=== PATIENT | female | born 1980 | race Caucasian/White ===

== ENCOUNTER 2022-07-25 13:16 | Emergency (ER) | payer SELFPAY ==
[2022-07-25 13:20] VITALS: BP 129/84; PULSE 94; RESP 18; TEMP 36.8; O2SAT 96; BMI 29.0
--- NOTE | 2022-07-25 13:37 | ED_ITS ---
HPI - Animal Bite General: Chief Complaint: Animal Bite Stated Complaint: Bit by a snake, Left leg Time Seen by Provider: 07/25/22 13:26 History of Present Illness: Ms. Hernadez is a 42-year-old lady without significant past medical history presents to the emergency department due to c oncern over syncope. She reports feeling her baseline health past few days and without clearing brush when she felt a sudden pain in her left lower leg. She did not see the snake however has had burning pain with mildly expanding erythema since then. Denies other signs systemic illness. Intensity symptoms is moderate. Course has persisted. Worse with palpation and movement. No other specific changes in health, exacerbating, or alleviating factors identified. Onset (ago): minute(s) Animal: snake Description of animal: wild animal Mechanism: bite Pain description: burning Associated symptoms: Reports no associated symptoms Review of Systems General: Reports: 10 or more systems reviewed and unremarkable except in HPI and below PFSH ED PFSH: Medical History (Updated 08/02/22 @ 20:19 by Huy Gonzales MD) No significant past medical history Surgical History (Updated 08/02/22 @ 20:19 by Huy Gonzales MD) No significant past surgical history Physical Exam Const: COMMON NORMALS: alert GENERAL APPEARANCE: cooperative and well developed HENMT: COMMON NORMALS: normocephalic and atraumatic HEAD & SCALP: normocephalic and atraumatic Eye: COMMON NORMALS: conjunctivae normal CONJUNCTIVA: Yes conjunctivae normal SCLERA: sclerae normal Neck/C-Spine: COMMON NORMALS: supple GENERAL: Yes trachea midline Resp: COMMON NORMALS: clear to auscultation bilaterally EFFORT & INSPECTION: Yes able to speak in complete sentences AUSCULTATION: clear to auscultation bilaterally Cardio: COMMON NORMALS: regular rate and regular rhythm RATE: regular rate RHYTHM: regular rhythm GI: COMMON NORMALS: Soft to palpation PALPATION: Yes Soft to palpation and No Tenderness to palpation present (GI) Extremity: GENERAL: Yes normal exam except as noted and No edema Neuro: COMMON NORMALS: moves all extremities SENSORIUM/ORIENTATION: Yes alert and No Orientation impaired Psych: COMMON NORMALS: mental status grossly normal and Normal thought process present THOUGHT PROCESS: Normal thought process present Skin: NARRATIVE SKIN EXAM: Area of erythema and localized edema with margins marked. 2 questionable superficial fang davila without significant puncture. Tender to palpation. Course Vital Signs: Vital signs: Vital Signs Temperature 98.3 F 07/25/22 13:20 Pulse Rate 85 07/25/22 15:37 Respiratory Rate 16 07/25/22 15:37 Blood Pressure 109/80 07/25/22 15:37 Pulse Oximetry 91 07/25/22 15:37 Oxygen Delivery Me thod 07/25/22 13:20 MDM - Animal Bite Medical Decision Making 42-year-old lady presenting with concern of a snakebite. Snake was not d efinitively observed/identified for the patient classification/identification. Localized symptoms without general symptoms. Patient is nontoxic in appearance. Symptom treatment ordered Mild leukocytosis on hematologic panel. Metabolic panel without significant abnormality. D-dimer mildly elevated without other significant coagulation abnormality. Negative x-ray. Upon serial reassessment of patient condition only minimal progression of edema and erythema has improved. Pain improved. There is no evidence of crossing major joint lines. Most likely etiology of patient's symptoms is partial envenomation versus other localized reaction to snakebite. The results of ED evaluation were discussed with the patient including prescriptions and/or symptomatic cares (if applicable) including appropriate and responsible use, followup plan, and strict return precautions. The patient verbalized understanding and felt safe for discharge. Medical Records I reviewed the patient's medical records. Lab Data I reviewed the patient's lab results. : 07/25/22 13:55 07/25/22 13:55 Radiology Impressions Tibia/Fibula X-Ray 07/25/22 13:44 IMPRESSION: Negative left tibia and fibula. Laboratory Results WBC 12.3 10^3/uL (4.0-10.0) H 07/25/22 13:55 RBC 4.64 10^6/uL (4.1-5.3) 07/25/22 13:55 Hgb 14.5 g/dL (11.5-15.3) 07/25/22 13:55 Hct 43.9 % (37.0-47.0) 07/25/22 13:55 MCV 94.6 fl (81-99) 07/25/22 13:55 MCH 31.3 pg (28.0-34.0) 07/25/22 13:55 MCHC 33.0 g/dL (30.0-36.0) 07/25/22 13:55 RDW 12.1 % (12.1-15.1) 07/25/22 13:55 Plt Count 266 10^3/cmm (130-400) 07/25/22 13:55 MPV 10.8 fL (7.4-10.4) H 07/25/22 13:55 Neut % (Auto) 53.6 % 07/25/22 13:55 Lymph % (Auto) 36.8 % 07/25/22 13:55 [place] % (Auto) 4.7 % 07/25/22 13:55 Eos % (Auto) 4.0 % 07/25/22 13:55 Baso % (Auto) 0.5 % 07/25/22 13:55 Neut # (Auto) 6.62 10^3/uL (1.8-7.7) 07/25/22 13:55 Lymph # (Auto) 4.5 10^3/uL (0.8-4.8) 07/25/22 13:55 [place] # (Auto) 0.6 10^3/uL (0.2-0.9) 07/25/22 13:55 Eos # (Auto) 0.5 10^3/uL (0.0-0.8) 07/25/22 13:55 Baso # (Auto) 0.1 10^3/uL (0.0-0.1) 07/25/22 13:55 Nucleated RBC % (auto) 0 % 07/25/22 13:55 Nucleated RBCs # 0.0 /100WBC 07/25/22 13:55 PT 12.60 SECONDS (12.1-14.9) 07/25/22 13:55 INR 0.92 (0.8-1.2) 07/25/22 13:55 APTT 30.7 SECONDS (23.9-36.7) 07/25/22 13:55 Fibrinogen 401 mg/dL (174-498) 07/25/22 13:55 D-Dimer 0.78 ug/mIFEU (0-0.59) H 07/25/22 13:55 Sodium 139 mmol/L (136-145) 07/25/22 13:55 Potassium 3.5 mmol/L (3.5-5.1) 07/25/22 13:55 Chloride 103 mmol/L (98-107) 07/25/22 13:55 Carbon Dioxide 25 mmol/L (22-29) 07/25/22 13:55 Anion Gap 14.5 (5-19) 07/25/22 13:55 BUN 14 mg/dL (6-20) 07/25/22 13:55 Creatinine 0.7 mg/dL (0.5-0.9) 07/25/22 13:55 GFR Calculation 90.9 mL/min (90-130) 07/25/22 13:55 Glucose 132 mg/dL (65-115) H 07/25/22 13:55 Calculated Osmolality 290 mOsm/kg (285-295) 07/25/22 13:55 Calcium 9.6 mg/dL (8.5-10.5) 07/25/22 13:55 Total Bilirubin 0.2 mg/dL (0.15-1.2) 07/25/22 13:55 AST 16 U/L (0-32) 07/25/22 13:55 ALT 17 U/L (0-33) 07/25/22 13:55 Alkaline Phosphatase 92 U/L (35-105) 07/25/22 13:55 Total Protein 7.1 g/dL (6.6-8.7) 07/25/22 13:55 Albumin 4.3 g/dL (3.5-5.2) 07/25/22 13:55 Globulin 2.8 g/dL (1.3-4.6) 07/25/22 13:55 Discharge Plan Discharge Patient Disposition: Home Clinical Impression: Snake bite Condition: Stable Prescriptions: No Action Vitamin B-12 250 mcg Tablet 250 mcg PO DAILY Women's Multivitamin 18 mg iron-400 mcg-500 mg Tablet 1 tab PO DAILY Discharge Orders: Discharge ED (Routine); Ordered 07/25/22 Ordered By: Huy Gonzlaes Discharge Diet: Usual diet Discharge Activity: Increase activity as tolerated Patient Instructions: Snake Bite (ED), Pain Management Activity Restrictions/Additional Instructions: Thank you for visiting the emergency department. You were seen evaluated for snakebite. Based on response to treatment and observation you do not require further inpatient management or treatment in the emergency department. You may use [id number] medications for symptoms however please do not exceed the daily recommended dosage and please keep in mind that many namebrand medications contain the same active ingredients. Return to the emergency department as discussed for worsening symptoms, uncontrolled pain, any changes in sensory motor or circulation, redness that spreads across joints or rapid increase in swelling, or anything else that you are concerned about a feel needs emergency department evaluation. 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
--- NOTE | 2022-07-25 13:43 | PC.NURSE ---
pt reports she was out clearing brush when she got bit by a nieto snake. denies any numbness or tinging. Last known tetanus shot was around 7 years ago. utilized a skin marker to maximilian around erythema to left medial calf. No obvious bite davila visualized. allergies to PCN and azithromycin.
--- NOTE | 2022-07-25 13:44 | XR_ITS ---
WS: [id number] Exam: XR tibia fibula LT 2V [id number] Date/Time of Exam: 07/25/2022 1:44 PM Reason For Exam: snakebite In multiple views, no fractures, soft tissue swelling, or unusual calcifications are noted in or arou nd the tibia and fibula. There is normal bony alignment. No irregularity to the bony architecture i s noted. XR/XR tibia fibula LT 2V [id number] IMPRESSION: Negative left tibia and fibula.
[2022-07-25 14:06] LABS: Basophils # 0.1 10^3/uL (0.0-0.1); Basophils % 0.5 %; Eosinophils # 0.5 10^3/uL (0.0-0.8); Hematocrit 43.9 % (37.0-47.0); Hemoglobin 14.5 g/dL (11.5-15.3); Lymphocytes # 4.5 10^3/uL (0.8-4.8); Lymphocytes % 36.8 %; Mean Corpuscular Hemoglobin 31.3 pg (28.0-34.0); Mean Corpuscular Volume 94.6 fl (81-99); Mean Platelet Volume 10.8 fL (7.4-10.4); Monocytes # 0.6 10^3/uL (0.2-0.9); Monocytes % 4.7 %; Neutrophils # 6.62 10^3/uL (1.8-7.7); Neutrophils % 53.6 %; Nucleated Red Blood Cells % 0 %; Platelet Count 266 10^3/cmm (130-400); Red Blood Count 4.64 10^6/uL (4.1-5.3); Red Cell Distribution Width 12.1 % (12.1-15.1); White Blood Count 12.3 10^3/uL (4.0-10.0)
[2022-07-25] MEDS: diphenhydrAMINE 50 mg/mL SDV 1mL 25 MG IVP (14:07)
[2022-07-25 14:13] VITALS: RESP 16; O2SAT 96
[2022-07-25] MEDS: morphine 4 mg/mL SDV 1 mL IVP (14:13)
[2022-07-25] MEDS: famotidine 20 mg/2 mL INJ 40 MG IVP (14:14)
[2022-07-25 14:21] LABS: Fibrinogen 401 mg/dL (174-498); INR 0.92 (0.8-1.2); Partial Thromboplastin Time 30.7 SECONDS (23.9-36.7)
[2022-07-25 14:23] LABS: Alanine Aminotransferase 17 U/L (0-33); Albumin Level 4.3 g/dL (3.5-5.2); Alkaline Phosphatase 92 U/L (35-105); Anion Gap 14.5 (5-19); Aspartate Amino Transferase 16 U/L (0-32); Blood Urea Nitrogen 14 mg/dL (6-20); Calcium 9.6 mg/dL (8.5-10.5); Carbon Dioxide 25 mmol/L (22-29); Chloride 103 mmol/L (98-107); Creatinine Clr Calc Pharmacy 110.4819; Globulin 2.8 g/dL (1.3-4.6); Glomerular Filtration Rate 90.9 mL/min (90-130); Glucose 132 mg/dL (65-115); Osmolality Calculated 290 mOsm/kg (285-295); Potassium 3.5 mmol/L (3.5-5.1); Sodium 139 mmol/L (136-145); Total Bilirubin 0.2 mg/dL (0.15-1.2); Total Protein 7.1 g/dL (6.6-8.7)
[2022-07-25 14:27] LABS: D Dimer 0.78 ug/mIFEU (0-0.59)
[2022-07-25 14:37] VITALS: BP 128/87; PULSE 92; O2SAT 92
--- NOTE | 2022-07-25 14:52 | PC.NURSE ---
area of erythema appears smaller in size
[2022-07-25 15:37] VITALS: BP 109/80; PULSE 85; RESP 16; O2SAT 91
== END 2022-07-25 15:38 | disposition home or self-care (01) ==
PROVIDERS: Emergency Provider Emergency Medicine
DX: T63.001A Toxic effect of unspecified snake venom, accidental (unintentional), initial encounter (principal)
CPT/HCPCS: 73590; 80053; 85025; 85378; 85384; 85610; 85730; 96374; 96375; 99284; J1200; J2270; J2930; J3490

== ENCOUNTER 2023-12-05 16:25 | Emergency (ER) | payer SELFPAY ==
[2023-12-05] VITALS (8 sets, daily range): BP systolic 106–141; BP diastolic 66–86; PULSE 76–85; RESP 16–17; TEMP 36.8; O2SAT 93–98
--- NOTE | 2023-12-05 16:47 | W.ED.ABDPA2 ---
Documented by User: ANGEL Michael 12/05/23 20:36 HPI - Abdominal Pain General: Chief Complaint: Abdominal Pain Stated Complaint: abd, jaw, & shoulder pain, nausea Time Seen by Provider: 12/05/23 16:28 Source: patient Mode of arrival: ambulatory Limitations: no limitations History of Present Illness: Patient is a 43-year-old female presents to ED today with complaint of upper/mid abdominal pain. Patient states she for started noticing some discomfort yesterday and describes it as mild and intermittent however throughout the evening and night the pain became more significant and constant in severity. She states pain was worse when she tried to lie on either side throughout the night. She states she has not had any vomiting. She has not noticed any changes in her bowel habits. She is urinating normally. She denies history of acid reflux or GERD. She states she has not ate anything today so unknown whether her pain is affected by eating. She states she had concerned that this could be her gallbladder. She is not having any localized right upper quadrant pain. Previous abdominal surgeries include a hysterectomy. She is not running any fevers. MD elicited complaint: abdominal pain Onset (ago): day(s) (yesterday) Pain Consistency: constant Location: Epigastric Severity: moderate Quality: sharp Radiation: none Migration to: no migration Exacerbating factors: other (lying down on either side) Relieving factors: nothing Associated Symptoms: Denies change in bowel habits, chills, diarrhea, dysuria, fever(s), hematochezia, melena and vomiting Related Data: Patient : No Review of Systems Const: Denies: fever(s), chills, body aches, fatigue or malaise Card: Denies: chest pain Resp: Denies: dyspnea GI: Reports: abdominal pain; Denies: vomiting, diarrhea, change in bowel habits, hematochezia or melena : Denies: flank pain, difficulty voiding, dysuria, urinary frequency, urinary urgency or urinary hesitancy Musc: Denies: neck pain, back pain, extremity pain or joint pain Skin/Breast: Denies: rash Neuro: Denies: headache(s), numbness in extremities, weakness in extremities, sensory changes or dizziness [facility] ED PFSH: Medical History No significant past medical history Surgical History No significant past surgical history Physical Exam Const: COMMON NORMALS: no acute distress, average body habitus, patient oriented x3, no limitations, healthy appearing, alert and well nourished GENERAL APPEARANCE: cooperative ORIENTATION/CONSCIOUSNESS: Yes awake, Yes oriented to person, Yes oriented to place and Yes oriented to time Eye: COMMON NORMALS: no scleral icterus Neck/C-Spine: COMMON NORMALS: full ROM, no lymphadenopathy, supple and no meningeal signs Resp: COMMON NORMALS: normal respiratory effort and clear to auscultation bilaterally AUSCULTATION: clear to auscultation bilaterally Cardio: COMMON NORMALS: regular rate and regular rhythm RATE: regular rate RHYTHM: regular rhythm GI: COMMON NORMALS: Normal to inspection, nondistended, normoactive bowel sounds present, Soft to palpation, No hepatosplenomegaly present and no masses INSPECTION: Yes normal to inspection AUSCULTATION: Yes normoactive bowel sounds PALPATION: Yes Soft to palpation, Yes Tenderness to palpation present (GI) (epigastric and just superior to umbilicus ), Yes Guarding due to palpation present (GI), No Rigid due to palpation and Yes No hepatosplenomegaly present : COMMON NORMALS: Yes no CVA tenderness BLADDER/KIDNEY EXAM: Yes no CVA tenderness Back/Pelvis: COMMON NORMALS: no CVA tenderness and thoracic and lumbar spine normal to inspection Extremity: COMMON NORMALS: normal to inspection GENERAL: Yes normal exam except as noted Neuro: POOJA COMA SCALE: document GCS findings Pooja coma scale eye opening: Spontaneous [place] coma scale verbal response: Orientated Pooja coma scale motor response: [place]bey commands [place] coma scale total score: 15 COMMON NORMALS: patient oriented x3 SENSORIUM/ORIENTATION: Yes alert, Yes oriented to person, Yes oriented to place and Yes oriented to time MENINGEAL SIGNS: Yes no meningeal signs Skin: COMMON NORMALS: no rashes or lesions noted GENERAL SKIN EXAM: no rashes or lesions noted Course Vital Signs: Vital signs: Vital Signs Temperature 98.2 F 12/05/23 16:29 Pulse Rate 82 12/05/23 20:00 Respiratory Rate 17 12/05/23 20:00 Blood Pressure 108/66 12/05/23 20:00 Pulse Oximetry 93 12/05/23 20:00 Oxygen Delivery Me thod Room Air 12/05/23 20:00 Oxygen Flow Rate 2 12/05/23 19:30 MDM - Abdominal Pain Medical Decision Making Patient's vital signs are normal. She did briefly require small amount of oxygen after morphine administration. Her blood work showing a white count of 14.5. Remainder of lab work is unremarkable. CT scan showing likely mild to moderate ileus with distal small bowel enteritis. There was no obstruction. Recommended follow-up. I will place patient on Cipro/Flagyl and treat pain/nausea. She was counseled on using opiate pain medication sparingly as this can also slow the bowel. She was given strict instructions for a completely clear liquid diet over the next 48 hours and slowly advancing as tolerated. She was given strict return to ED precautions. Medical Records I reviewed the patient's medical records. Lab Data I reviewed the patient's lab results. 12/05/23 17:24 12/05/23 18:00 Labs/Radiology: Radiology Impressions Abdomen/Pelvis CT 12/05/23 17:54 IMPRESSION: 1. Likely qdse-[id number]-dbhoqabl ileus with distal small bowel enteritis. No site of obstruction. This should be followed up. 2. No high-grade small bowel obstruction, abscess or free air. Minimal pelvic free fluid. No fluid collection. 3. Absent uterus. COMMENTS: Consistent with the [place] [employer]'s Incidental Findings Committee white paper (J Am Laura Radiol 2018): Any incidental renal lesion less than 1 cm or classified as too small to characterize, or any incidental cystic renal lesion characterized as simple-appearing, is likely benign. No follow-up imaging is recommended for these lesions per consensus recommendations based on imaging criteria. Laboratory Results WBC 14.52 10^3/uL (3.29-11.43) H 12/05/23 17:24 RBC 4.82 10^6/uL (3.85-5.65) 12/05/23 17:24 Hgb 15.10 g/dL (11.27-16.99) 12/05/23 17:24 Hct 46.5 % (36-47) 12/05/23 17:24 MCV 96.5 fl (85-98) 12/05/23 17:24 MCH 31.3 pg (27-33) 12/05/23 17:24 MCHC 32.5 g/dL (30-55) 12/05/23 17:24 RDW 12.9 % (12.1-15.1) 12/05/23 17:24 Plt Count 211 10^3/cmm (157-399) 12/05/23 17:24 MPV 11.2 fL (7.4-10.4) H 12/05/23 17:24 Neut % (Auto) 75.8 % 12/05/23 17:24 Lymph % (Auto) 17.2 % 12/05/23 17:24 [place] % (Auto) 3.6 % 12/05/23 17:24 Eos % (Auto) 2.1 % 12/05/23 17:24 Baso % (Auto) 0.7 % 12/05/23 17:24 Neut # (Auto) 11.01 10^3/uL (1.8-7.7) H 12/05/23 17:24 Lymph # (Auto) 2.5 10^3/uL (0.8-4.8) 12/05/23 17:24 [place] # (Auto) 0.5 10^3/uL (0.2-0.9) 12/05/23 17:24 Eos # (Auto) 0.3 10^3/uL (0.0-0.8) 12/05/23 17:24 Baso # (Auto) 0.1 10^3/uL (0.0-0.1) 12/05/23 17:24 Nucleated RBC % (auto) 0 % 12/05/23 17:24 Nucleated RBCs # 0.0 /100WBC 12/05/23 17:24 Sodium 139 mmol/L (136-145) 12/05/23 18:00 Potassium 4.2 mmol/L (3.5-5.1) 12/05/23 18:00 Chloride 109 mmol/L (98-107) H 12/05/23 18:00 Carbon Dioxide 21 mmol/L (22-29) L 12/05/23 18:00 Anion Gap 13.2 (5-19) 12/05/23 18:00 BUN 10 mg/dL (6-20) 12/05/23 18:00 Creatinine 0.6 mg/dL (0.5-0.9) 12/05/23 18:00 GFR Calculation 108.1 mL/min (90-130) 12/05/23 18:00 Glucose 111 mg/dL (65-115) 12/05/23 18:00 Calculated Osmolality 288 mOsm/kg (285-295) 12/05/23 18:00 Calcium 8.8 mg/dL (8.5-10.5) 12/05/23 18:00 Total Bilirubin 0.2 mg/dL (0.15-1.2) 12/05/23 18:00 AST 16 U/L (0-32) 12/05/23 18:00 ALT 18 U/L (0-33) 12/05/23 18:00 Alkaline Phosphatase 95 U/L (35-105) 12/05/23 18:00 Total Protein 6.3 g/dL (6.6-8.7) L 12/05/23 18:00 Albumin 3.9 g/dL (3.5-5.2) 12/05/23 18:00 Globulin 2.4 g/dL (1.3-4.6) 12/05/23 18:00 Lipase 29 U/L (13-60) 12/05/23 18:00 Urine Color Light yellow (Yellow) 12/05/23 18:57 Urine Appearance Clear (CLEAR) 12/05/23 18:57 Urine pH 5 (5-7) 12/05/23 18:57 Ur Specific [place] 1.010 (1.005-1.030) 12/05/23 18:57 Urine Protein Neg (Negative) 12/05/23 18:57 Urine Glucose (UA) Norm (Normal) 12/05/23 18:57 Urine Ketones Negative (Negative) 12/05/23 18:57 Urine Blood Neg (Negative) 12/05/23 18:57 Urine Nitrate Negative (Negative) 12/05/23 18:57 Urine Bilirubin Neg (Negative) 12/05/23 18:57 Urine Urobilinogen Neg mg/dL (Negative) 12/05/23 18:57 Ur Leukocyte Esterase Negative (Negative) 12/05/23 18:57 All radiology interpretation(s) finalized by discharge Discharge Plan Discharge Patient Disposition: Home Clinical Impression: Enteritis, Ileus Condition: Stable Prescriptions: New hydrocodone-acetaminophen 5-325 mg tablet 1 tab PO Q6H PRN (Reason: pain) Qty: 10 0RF metronidazole 500 mg tablet 500 mg PO BID 7 Days Qty: 14 0RF Cipro 500 mg tablet 500 mg PO Q12H Qty: 14 0RF ondansetron 4 mg tablet,disintegrating 4 mg PO Q8H PRN (Reason: nausea and vomiting) Qty: 10 0RF No Action Vitamin B-12 250 mcg Tablet 250 mcg PO DAILY Women's Multivitamin 18 mg iron-400 mcg-500 mg Tablet 1 tab PO DAILY Discharge Orders: Discharge ED (Routine); Ordered 12/05/23 Ordered By: Caryn Mae Patient Instructions: Ileus (ED), Enteritis (ED), Opioid Safety, Pain Management Activity Restrictions/Additional Instructions: As we discussed your imaging today showed a small bowel enteritis with an ileus which is a slowing of the bowel. It is very important over the next 24 to 48 hours that you do a completely clear liquid diet. From there you may slowly advance to soft foods including things like applesauce, jello, pudding, etc and then from there can advance to normal foods. Fill your antibiotics and start them tomorrow. You have been given pain meds and nausea meds that you may take as well as needed. As we discussed take pain medication sparingly as they can also slow the bowel. You need to return to the emergency department for worsening or uncontrollable pain, repetitive episodes of vomiting, inability to move stool or pass gas, fevers, generally feeling worse or unwell, or any other concerns you may have. I hope you begin to feel better soon. Coding Level of Care Code ED Lumber Mover for Chg Fwd Documented by User: Keagan Gandhi DO 12/05/23 20:44 HPI - Abdominal Pain General: Chief Complaint: Abdominal Pain Stated Complaint: abd, jaw, & shoulder pain, nausea Time Seen by Provider: 12/05/23 16:28 PFSH ED PFSH: Medical History No significant past medical history Surgical History No significant past surgical history Physical Exam Neuro: POOJA COMA SCALE: document GCS findings [place] coma scale total score: 15 Course Vital Signs: Vital signs: Vital Signs Temperature 98.2 F 12/05/23 16:29 Pulse Rate 82 12/05/23 20:00 Respiratory Rate 17 12/05/23 20:00 Blood Pressure 108/66 12/05/23 20:00 Pulse Oximetry 93 12/05/23 20:00 Oxygen Delivery Me thod Room Air 12/05/23 20:00 Oxygen Flow Rate 2 12/05/23 19:30 MDM - Abdominal Pain Medical Decision Making Patient's vital signs are normal. She did briefly require small amount of oxygen after morphine administration. Her blood work showing a white count of 14.5. Remainder of lab work is unremarkable. CT scan showing likely mild to moderate ileus with distal small bowel enteritis. There was no obstruction. Recommended follow-up. I will place patient on Cipro/Flagyl and treat pain/nausea. She was counseled on using opiate pain medication sparingly as this can also slow the bowel. She was given strict instructions for a completely clear liquid diet over the next 48 hours and slowly advancing as tolerated. She was given strict return to ED precautions. This patient was originally seen by Tu?TITO Mckeon.? I agree with her history, evaluation, and treatment. Lab Data 12/05/23 17:24 12/05/23 18:00 Labs/Radiology: Radiology Impressions Abdomen/Pelvis CT 12/05/23 17:54 IMPRESSION: 1. Likely dnuq-mc-uuburooh ileus with distal small bowel enteritis. No site of obstruction. This should be followed up. 2. No high-grade small bowel obstruction, abscess or free air. Minimal pelvic free fluid. No fluid collection. 3. Absent uterus. COMMENTS: Consistent with the [place] [employer]'s Incidental Findings Committee white paper (J Am Laura Radiol 2018): Any incidental renal lesion less than 1 cm or classified as too small to characterize, or any incidental cystic renal lesion characterized as simple-appearing, is likely benign. No follow-up imaging is recommended for these lesions per consensus recommendations based on imaging criteria. Laboratory Results WBC 14.52 10^3/uL (3.29-11.43) H 12/05/23 17:24 RBC 4.82 10^6/uL (3.85-5.65) 12/05/23 17:24 Hgb 15.10 g/dL (11.27-16.99) 12/05/23 17:24 Hct 46.5 % (36-47) 12/05/23 17:24 MCV 96.5 fl (85-98) 12/05/23 17:24 MCH 31.3 pg (27-33) 12/05/23 17:24 MCHC 32.5 g/dL (30-55) 12/05/23 17:24 RDW 12.9 % (12.1-15.1) 12/05/23 17:24 Plt Count 211 10^3/cmm (157-399) 12/05/23 17:24 MPV 11.2 fL (7.4-10.4) H 12/05/23 17:24 Neut % (Auto) 75.8 % 12/05/23 17:24 Lymph % (Auto) 17.2 % 12/05/23 17:24 [place] % (Auto) 3.6 % 12/05/23 17:24 Eos % (Auto) 2.1 % 12/05/23 17:24 Baso % (Auto) 0.7 % 12/05/23 17:24 Neut # (Auto) 11.01 10^3/uL (1.8-7.7) H 12/05/23 17:24 Lymph # (Auto) 2.5 10^3/uL (0.8-4.8) 12/05/23 17:24 [place] # (Auto) 0.5 10^3/uL (0.2-0.9) 12/05/23 17:24 Eos # (Auto) 0.3 10^3/uL (0.0-0.8) 12/05/23 17:24 Baso # (Auto) 0.1 10^3/uL (0.0-0.1) 12/05/23 17:24 Nucleated RBC % (auto) 0 % 12/05/23 17:24 Nucleated RBCs # 0.0 /100WBC 12/05/23 17:24 Sodium 139 mmol/L (136-145) 12/05/23 18:00 Potassium 4.2 mmol/L (3.5-5.1) 12/05/23 18:00 Chloride 109 mmol/L (98-107) H 12/05/23 18:00 Carbon Dioxide 21 mmol/L (22-29) L 12/05/23 18:00 Anion Gap 13.2 (5-19) 12/05/23 18:00 BUN 10 mg/dL (6-20) 12/05/23 18:00 Creatinine 0.6 mg/dL (0.5-0.9) 12/05/23 18:00 GFR Calculation 108.1 mL/min (90-130) 12/05/23 18:00 Glucose 111 mg/dL (65-115) 12/05/23 18:00 Calculated Osmolality 288 mOsm/kg (285-295) 12/05/23 18:00 Calcium 8.8 mg/dL (8.5-10.5) 12/05/23 18:00 Total Bilirubin 0.2 mg/dL (0.15-1.2) 12/05/23 18:00 AST 16 U/L (0-32) 12/05/23 18:00 ALT 18 U/L (0-33) 12/05/23 18:00 Alkaline Phosphatase 95 U/L (35-105) 12/05/23 18:00 Total Protein 6.3 g/dL (6.6-8.7) L 12/05/23 18:00 Albumin 3.9 g/dL (3.5-5.2) 12/05/23 18:00 Globulin 2.4 g/dL (1.3-4.6) 12/05/23 18:00 Lipase 29 U/L (13-60) 12/05/23 18:00 Urine Color Light yellow (Yellow) 12/05/23 18:57 Urine Appearance Clear (CLEAR) 12/05/23 18:57 Urine pH 5 (5-7) 12/05/23 18:57 Ur Specific [place] 1.010 (1.005-1.030) 12/05/23 18:57 Urine Protein Neg (Negative) 12/05/23 18:57 Urine Glucose (UA) Norm (Normal) 12/05/23 18:57 Urine Ketones Negative (Negative) 12/05/23 18:57 Urine Blood Neg (Negative) 12/05/23 18:57 Urine Nitrate Negative (Negative) 12/05/23 18:57 Urine Bilirubin Neg (Negative) 12/05/23 18:57 Urine Urobilinogen Neg mg/dL (Negative) 12/05/23 18:57 Ur Leukocyte Esterase Negative (Negative) 12/05/23 18:57 Discharge Plan Discharge Patient Disposition: Home Clinical Impression: Enteritis, Ileus Condition: Stable Prescriptions: New hydrocodone-acetaminophen 5-325 mg tablet 1 tab PO Q6H PRN (Reason: pain) Qty: 10 0RF metronidazole 500 mg tablet 500 mg PO BID 7 Days Qty: 14 0RF Cipro 500 mg tablet 500 mg PO Q12H Qty: 14 0RF ondansetron 4 mg tablet,disintegrating 4 mg PO Q8H PRN (Reason: nausea and vomiting) Qty: 10 0RF No Action Vitamin B-12 250 mcg Tablet 250 mcg PO DAILY Women's Multivitamin 18 mg iron-400 mcg-500 mg Tablet 1 tab PO DAILY Discharge Orders: Discharge ED (Routine); Ordered 12/05/23 Ordered By: Caryn Mae Patient Instructions: Ileus (ED), Enteritis (ED), Opioid Safety, Pain Management Activity Restrictions/Additional Instructions: As we discussed your imaging today showed a small bowel enteritis with an ileus which is a slowing of the bowel. It is very important over the next 24 to 48 hours that you do a completely clear liquid diet. From there you may slowly advance to soft foods including things like applesauce, jello, pudding, etc and then from there can advance to normal foods. Fill your antibiotics and start them tomorrow. You have been given pain meds and nausea meds that you may take as well as needed. As we discussed take pain medication sparingly as they can also slow the bowel. You need to return to the emergency department for worsening or uncontrollable pain, repetitive episodes of vomiting, inability to move stool or pass gas, fevers, generally feeling worse or unwell, or any other concerns you may have. I hope you begin to feel better soon. Coding Level of Care Code ED Lumber Mover for [place]
[2023-12-05] MEDS: lidocaine 2% viscous 15 ML, aluminum-mag hydrox-simethicon 30 ML, sucralfate oral liq 1 GM PO (17:19)
[2023-12-05] MEDS: sodium chloride 0.9% 1,000 ML 999 ML IV (17:20)
[2023-12-05 17:43] LABS: Basophils # 0.1 10^3/uL (0.0-0.1); Basophils % 0.7 %; Eosinophils # 0.3 10^3/uL (0.0-0.8); Eosinophils % 2.1 %; Hematocrit 46.5 % (36-47); Lymphocytes # 2.5 10^3/uL (0.8-4.8); Lymphocytes % 17.2 %; Mean Corpuscular HGB Conc 32.5 g/dL (30-55); Mean Corpuscular Hemoglobin 31.3 pg (27-33); Mean Corpuscular Volume 96.5 fl (85-98); Mean Platelet Volume 11.2 fL (7.4-10.4); Monocytes # 0.5 10^3/uL (0.2-0.9); Monocytes % 3.6 %; Neutrophils # 11.01 10^3/uL (1.8-7.7); Neutrophils % 75.8 %; Nucleated Red Blood Cells % 0 %; Platelet Count 211 10^3/cmm (157-399); Red Blood Count 4.82 10^6/uL (3.85-5.65); Red Cell Distribution Width 12.9 % (12.1-15.1); White Blood Count 14.52 10^3/uL (3.29-11.43)
--- NOTE | 2023-12-05 17:54 | CTR_ITS ---
PROCEDURE INFORMATION: Exam: CT Abdomen And Pelvis With Contrast Exam date and time: 12/05/2023 6:28 PM Age: 43 years old Clinical indication: Abdominal pain; Prior surgery; Surgery date: 6+ months; Surgery type: Hysterectomy; Patient HX: C/O periumbilical pain; Additional info: Mid abdominal pain TECHNIQUE: Imaging protocol: Computed tomography of the abdomen and pelvis with contrast. Radiation optimization: All CT scans at this facility use at least one of these dose optimization techniques: automated exposure control; mA and/or kV adjustment per patient size (includes targeted exams where dose is matched to clinical indication); or iterative reconstruction. Contrast material: OMNI 350; Contrast volume: 100 ml; Contrast route: INTRAVENOUS (IV); COMPARISON: No relevant prior studies available. RADIATION DOSE METRICS: Total DLP (mGy-cm): 828.61 FINDINGS: Lungs: A few minute calcified lung nodules are seen incidentally. Diaphragm: Tiny hiatal hernia. Liver: Liver is mildly steatotic. No enhancing mass. Gallbladder and bile ducts: No calcified gallstones or biliary dilation identified. Pancreas: Unremarkable with no suspicious mass. No ductal dilation. Spleen: The spleen is not enlarged. No suspicious enhancing mass is noted. Tiny hypodensity on series 3, image 27. Adrenal glands: Normal. No mass. Kidneys and ureters: Tiny bilateral renal cysts. No enhancing renal mass or hydronephrosis. Stomach and bowel: Multiple mid to distal small bowel loops measure up to about 3.7 cm. The colon is mildly fecal filled. Distal small bowel wall thickening at distal ileum. Mild sigmoid diverticulosis. Appendix: No evidence of appendicitis. Intraperitoneal space: Trace pelvic free fluid. Vasculature: A retroaortic left renal vein is present. Mild vascular calcification. Lymph nodes: No enlarged lymph nodes. Urinary bladder: Unremarkable as visualized. Reproductive: Absent uterus. Bones/joints: No acute fracture. Soft tissues: No acute or suspicious finding noted. CT/CT abdomen pelvis w con* [id number] IMPRESSION: 1. Likely jfyf-ad-akuiucma ileus with distal small bowel enteritis. No site of obstruction. This should be followed up. 2. No high-grade small bowel obstruction, abscess or free air. Minimal pelvic free fluid. No fluid collection. 3. Absent uterus. COMMENTS: Consistent with the [place] [employer]'s Incidental Findings Committee white paper (J Am Laura Radiol 2018): Any incidental renal lesion less than 1 cm or classified as too small to characterize, or any incidental cystic renal lesion characterized as simple-appearing, is likely benign. No follow-up imaging is recommended for these lesions per consensus recommendations based on imaging criteria.
[2023-12-05] MEDS: iohexol 350 mg/mL 500 mL Btl (per mL) IV (18:26)
[2023-12-05 18:28] LABS: Alanine Aminotransferase 18 U/L (0-33); Albumin Level 3.9 g/dL (3.5-5.2); Alkaline Phosphatase 95 U/L (35-105); Anion Gap 13.2 (5-19); Aspartate Amino Transferase 16 U/L (0-32); Blood Urea Nitrogen 10 mg/dL (6-20); Calcium 8.8 mg/dL (8.5-10.5); Carbon Dioxide 21 mmol/L (22-29); Chloride 109 mmol/L (98-107); Creatinine Clr Calc Pharmacy 127.5528; Globulin 2.4 g/dL (1.3-4.6); Glomerular Filtration Rate 108.1 mL/min (90-130); Glucose 111 mg/dL (65-115); Lipase 29 U/L (13-60); Osmolality Calculated 288 mOsm/kg (285-295); Potassium 4.2 mmol/L (3.5-5.1); Sodium 139 mmol/L (136-145); Total Bilirubin 0.2 mg/dL (0.15-1.2); Total Protein 6.3 g/dL (6.6-8.7)
[2023-12-05] MEDS: ondansetron 2 mg/ML SDV 2 mL 4 MG IVP (18:58)
[2023-12-05] MEDS: morphine 4 mg/mL SDV 1 mL IVP (18:58)
[2023-12-05 19:05] LABS: Add Urine Microscopic? NO; Charge for UA Resulting for Rev
[2023-12-05 19:07] LABS: Bilirubin Urine Neg (Negative); Blood Urine Neg (Negative); Glucose Urine UA Norm (Normal); Ketones Urine Negative (Negative); Leukocyte Esterase Urine Negative (Negative); Nitrate Urine Negative (Negative); Protein Urine Neg (Negative); Urine Appearance Clear (CLEAR); Urine Color Light yellow (Yellow); Urobilinogen Urine Neg (Negative); pH Urine 5 (5-7)
[2023-12-05] MEDS: ciprofloxacin 500 mg Tablet PO (19:49)
[2023-12-05] MEDS: ketorolac 30 mg/mL INJ IVP (19:49)
[2023-12-05] MEDS: metroNIDAZOLE 500 MG Tablet PO (19:50)
[2023-12-05] MEDS: HYDROcodone-acetaminophen 5-325 mg Tablet 1 TAB PO (20:24)
--- NOTE | 2023-12-07 07:23 | DCPLANNER ---
A message was sent to general surgery on 12/07/23 at 0724. Clinic to contact patient
== END 2023-12-05 20:30 | disposition home or self-care (01) ==
PROVIDERS: Emergency Provider Physician Assistant
DX: K52.9 Noninfective gastroenteritis and colitis, unspecified (principal); K56.7 Ileus, unspecified
CPT/HCPCS: 36415; 74177; 80053; 81003; 83690; 85025; 96361; 96374; 96375; 99285; J1885; J2270; J2405; J7030; Q9967